=== PATIENT | female | born 1990 | race Caucasian/White ===

== ENCOUNTER 2025-01-03 21:20 | Emergency (ER) | payer BC ==
[2025-01-03 21:28] VITALS: BP 129/66; PULSE 77; RESP 18; TEMP 98.2; BMI 37.0
[2025-01-03] MEDS ORDERED: diphenhydrAMINE HCL 25 MG CAPSULE (FP) PO ONE (22:14)
[2025-01-03] MEDS ORDERED: ACETAMINOPHEN 325 MG TABLET (FP) ONE (22:15)
[2025-01-03] MEDS: ACETAMINOPHEN 500 MG TABLET (FP) PO ONE (22:17)
[2025-01-03] MEDS: diphenhydrAMINE HCL 25 MG CAPSULE (FP) PO ONE (22:17)
== END 2025-01-03 23:00 | disposition home or self-care (01) ==
LOC: JERFT 21:20
DX: R21 Rash and other nonspecific skin eruption (principal); R09.89 Other specified symptoms and signs involving the circulatory and respiratory systems; M79.10 Myalgia, unspecified site; R53.83 Other fatigue
CPT/HCPCS: 99283-25